=== PATIENT | female | born 1965 | race African-American/Black ===

== ENCOUNTER 2016-09-18 19:29 | Emergency (ER) | payer MEDICAID, OTHER ==
[~2016-09-18] VITALS: Ht 162.6 cm; Wt 75.0 kg
[2016-09-19] MEDS ORDERED: IBUPROFEN 600MG TABLET PO ONE (03:45)
[2016-09-19 04:15] VITALS: BP 136/79
== END 2016-09-19 04:15 | disposition home or self-care (01) ==
LOC: ER 19:29
DX: M54.9 Dorsalgia, unspecified (principal); W19.XXXA Unspecified fall, initial encounter; Y93.89 Activity, other specified; Y92.89 Other specified places as the place of occurrence of the external cause; Y99.8 Other external cause status
CPT/HCPCS: 99282; Z7610